=== PATIENT | male | born 1955 | race African-American/Black ===

== ENCOUNTER 2019-01-08 13:56 | Inpatient (IN) ==
--- NOTE | 2019-01-08 15:32 | EKG Report ---
Test Performed on : 01/08/2019 2:34:39 PM Test Reason : Weakness Blood Pressure : / mmHG Vent. Rate : 081 BPM Atrial Rate : 081 BPM P-R Int : 164 ms QRS Dur : 144 ms QT Int : 436 ms P-R-T Axes : 043 -32 085 degrees QTc Int : 506 ms Normal sinus rhythm. Left axis deviation Left bundle branch block Abnormal ECG When compared with ECG of 05-JUN-2018 13:33, T wave inversion no longer evident in Inferior leads T wave inversion less evident in Lateral leads Unconfirmed Result
[2019-01-08 15:44] LABS: BASO# 0.02 X1000 (0.0-0.2); BASO% 0.1 % (0.0-0.8); HEMATOCRIT 40.1 % (42.0-52.0); HEMOGLOBIN 13.3 g/dL (14.0-18.0); IMM GRAN# 0.06 X1000 (0.0-0.04); IMM GRAN% 0.3 % (0.0-0.5); LYMPH# 1.81 X1000 (1.2-3.4); LYMPH% 9.7 % (20.5-51.1); MCH 26.5 PG (27-31); MCHC 33.2 g/dL (33-37); MONO# 1.59 X1000 (0.11-0.59); MONO% 8.5 % (1.7-9.3); MPV 10.3 FL (7.4-10.4); NEUT# 15.14 X1000 (1.4-6.5); NEUT% 81.4 % (42.2-75.2); PLT 545 X1000 (130-400); RBC 5.01 XMIL (4.7-6.1); RDW 14.8 % (11.5-14.5); WBC 18.62 X1000 (4.8-10.8)
[2019-01-08 16:05] LABS: ALB/GLOB RATIO 0.9; ALBUMIN 3.8 g/dL (3.5-5.0); CALCIUM 9.9 mg/dL (8.8-10.2); CREATININE 2.2 mg/dL (0.7-1.2); POTASSIUM 5.4 mmol/L (3.5-5.1); TOTAL BILIRUBIN 0.57 mg/dL (0.20-1.00); TOTAL PROTEIN 8.1 g/dL (6.3-8.3)
[2019-01-08] MEDS ORDERED: NS 500 ML IV ONE (16:41)
--- NOTE | 2019-01-08 16:46 | PROVIDER DOCUMENTATION ---
HPI-General Adult - General Chief Complaint: Weakness Stated Complaint: lethargy Time Seen by Provider: 01/08/19 16:16 Source: patient Allergies/Adverse Reactions: Patient Allergies Allergy/AdvReac Type Severity Reaction Status Date / Time No Known Allergies Allergy Verified 01/08/19 14:16 Home Medications: Home Medication List Medication Instructions Recorded Confirmed Last Taken Type Aspirin 81 mg PO DAILY 11/30/12 09/30/18 10/05/18 09:00 History Carvedilol 25 mg PO BID 11/30/12 09/30/18 10/06/18 03:30 History Folic Acid 1 mg PO DAILY 11/30/12 09/30/18 10/05/18 09:00 History Glimepiride [Amaryl] 4 mg PO BID 11/30/12 09/30/18 10/05/18 17:00 History Irbesartan [Avapro] 0.5 tab PO DAILY 11/30/12 09/30/18 10/05/18 09:00 History Oxcarbazepine 300 mg PO BID 11/30/12 09/30/18 10/06/18 03:30 History Potassium Chloride [Klor-Con M20] 20 meq PO DAILY 11/30/12 09/30/18 10/05/18 09:00 History Furosemide 1.5 tab PO DAILY 06/05/18 09/30/18 10/05/18 09:00 History Sitagliptin Phosphate [Januvia] 100 mg PO DAILY 06/05/18 09/30/18 10/05/18 09:00 History SIMVAstatin [Zocor] 20 mg PO QHS 09/30/18 10/06/18 10/05/18 21:00 History Collagenase Clostridium Oint 1 applicatn TOP DAILY #1 oint 10/06/18 Unknown Rx [Santyl Oint] Sulfamethoxazole/Trimethoprim 1 ea PO BID #20 tab 10/06/18 Unknown Rx [Bactrim Ds Tablet] - History of Present Illness -Gen Adult Nature of Presenting Problems: Patient is a 63 yobm who complains of generalized weakness that began today. States he had an episode of diaphoresis today as well. He has a hx of a foot ulcer to right heel and right great toe amputation in August- states the site where great toe was amputated began bleeding today. 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 Denies cp, vomiting, diarrhea, fever, or any other symptoms. He is not currently on abx for his foot. Review of Systems - Adult - REVIEW OF SYSTEMS - ADULT Constitutional: reports: no symptoms reported. denies: chills, fever Eyes: reports: no symptoms reported Ears, Nose, Mouth & Throat: reports: no symptoms reported Cardiovascular: reports: no symptoms reported Respiratory: reports: no symptoms reported Gastrointestinal: reports: no symptoms reported Genitourinary: reports: no symptoms reported Musculoskeletal: reports: see HPI Integumentary: reports: see HPI Neurological: reports: no symptoms reported Psychiatric: reports: no symptoms reported Endocrine: reports: no symptoms reported Hematologic/Lymphatic: reports: no symptoms reported Allergic/Immunologic: reports: no symptoms reported All Other Systems: Reviewed and Negative Past History - Adult - PAST MEDICAL HISTORY-ADULT Review of Records: reports: Old Records Reviewed, Nursing Assessment Review, Medications Reviewed, Social history reviewed & non-contributory. Major Childhood Illnesses: reports: denies history Cardiovascular: reports: CAD, HTN, other (CHF) Respiratory: reports: denies history Gastrointestinal: reports: denies history Obstetrical/Gynecological: reports: denies history Genitourinary: reports: denies history Neurological: reports: CVA, stroke deficits Psychiatric: reports: denies history Endocrine/Immune: reports: Diabetes Diabetes Type: Type 2 Other Conditions: reports: blindness (left eye- due to cva) - PRIOR SURGERIES/PROCEDURES Surgical/Procedure History: reports: other (right foot) - FAMILY HISTORY Family History: reviewed, not pertinent - SOCIAL HISTORY Smoking: non-smoker Physical Exam-General - PHYSICAL EXAM-ADULT Initial Vital Signs Reviewed: Yes - CONSTITUTIONAL General Appearance: alert, no apparent distress. negative: lethargic, slow to respond - EYES Eyes: pink conjunctivae, other (PERRLA noted bilaterally, unable to perform EOM of left eye due to blindness and extraocular muscle weakness on left) - HEAD, EARS, NOSE, MOUTH & THROAT HENMT: normocephalic/atraumatic, moist mucous membranes - NECK Neck: full range of motion, supple, normal inspection - RESPIRATORY Respiratory: chest non-tender, lungs clear, normal breath sounds, no pleuratic chest pain, no respiratory distress, no accessory muscle use - CARDIOVASCULAR Cardiovascular: regular rate, rhythm, no gallop, no murmur - GASTROINTESTINAL (ABDOMEN) Abdominal Exam: normal bowel sounds, non tender, soft. negative: distended, guarding, rigid, rebound, tenderness - MUSCULOSKELETAL Back Exam: normal inspection Extremity: normal capillary refill, pelvis stable, other (Soft boot and bulky dressing in place to left foot- examined) - SKIN Integumentary: other (Scant amount of serosanguineous drainage noted to site of right great toe amputation) - NEUROLOGIC Neurologic: other (left -sided weakness- pt and family state this is residual from prior cva) - PSYCHIATRIC Psych/Mental Status: normal mood/affect, normal thought content, normal thought process, oriented x 3 Progress - PLAN OF CARE/RESULTS Progress/Plan/Lab Results: Vital Signs - 8 hr 01/08/19 14:13 01/08/19 14:15 01/08/19 14:28 Temperature 97.6 F Pulse Rate 84 Respiratory Rate 20 Blood Pressure 81/60 81/60 113/68 O2 Sat by Pulse Oximetry 100 98 01/08/19 14:31 01/08/19 15:01 01/08/19 15:15 Temperature Pulse Rate Respiratory Rate Blood Pressure 96/69 91/61 O2 Sat by Pulse Oximetry 98 98 98 01/08/19 15:30 01/08/19 15:31 01/08/19 15:45 Temperature Pulse Rate Respiratory Rate Blood Pressure 112/72 O2 Sat by Pulse Oximetry 99 97 98 01/08/19 16:00 01/08/19 16:01 01/08/19 16:15 Temperature Pulse Rate 81 Respiratory Rate 20 Blood Pressure 103/68 O2 Sat by Pulse Oximetry 98 98 98 Laboratory Results - last 24 hr 01/08/19 01/08/19 14:56 14:56 WBC 18.62 H RBC 5.01 Hgb 13.3 L Hct 40.1 L MCV 80.0 L MCH 26.5 L MCHC 33.2 RDW Std Deviation 14.8 H Plt Count 545 H MPV 10.3 Immature Gran % (Auto) 0.3 Neut % (Auto) 81.4 H Lymph % (Auto) 9.7 L Kay % (Auto) 8.5 Eos % (Auto) 0.0 Baso % (Auto) 0.1 Immature Gran # (Auto) 0.06 H Neut # (Auto) 15.14 H Lymph # (Auto) 1.81 Kay # (Auto) 1.59 H Eos # (Auto) 0.00 Baso # (Auto) 0.02 Sodium 135 L Potassium 5.4 H Chloride 95 L Carbon Dioxide 22 L Anion Gap 18 BUN 24 H Creatinine 2.2 H Estimated GFR/1.73 m2 37 BUN/Creatinine Ratio 11 Glucose 265 H Calculated Osmolality 283 Calcium 9.9 Total Bilirubin 0.57 AST 12 ALT 9 L Alkaline Phosphatase 140 H Total Protein 8.1 Albumin 3.8 Globulin 4.3 Albumin/Globulin Ratio 0.9 Orders Category Date Time Status Cardiac Monitoring DIRECTED Care 01/08/19 16:36 Active IV Insertion ORDERED Care 01/08/19 16:36 Active Notify MD of + Sepsis Screen NOW Care 01/08/19 16:36 Active Notify Physician As Ordered Care 01/08/19 16:36 Active CHEST-1 VIEW [RAD] Stat Exams 01/08/19 16:36 Ordered FOOT COMPLETE RIGHT [RAD] Stat Exams 01/08/19 16:37 Ordered BLOOD CULTURE [BLDCUL] Stat Lab 01/08/19 16:36 Uncollected CBC WITH ELECTRONIC DIFF [HEME] Stat Lab 01/08/19 14:56 Completed CK PROFILE [SP CHEM] Stat Lab 01/08/19 16:36 Uncollected COMPREHENSIVE METABOLIC PANEL [CHEM] Stat Lab 01/08/19 14:56 Completed LACTATE, PLASMA [CHEM] Q3H Lab 01/08/19 16:45 Uncollected LACTATE, PLASMA [CHEM] Q3H Lab 01/08/19 19:45 Uncollected LACTATE, PLASMA [CHEM] Q3H Lab 01/08/19 22:45 Uncollected MAGNESIUM [CHEM] Stat Lab 01/08/19 16:36 Uncollected PROTIME WITH INR [COAG] Stat Lab 01/08/19 16:36 Uncollected PTT [COAG] Stat Lab 01/08/19 16:36 Uncollected ROUTINE CULTURE [RM] Stat Lab 01/08/19 16:36 Uncollected TROPONIN T Stat Lab 01/08/19 16:36 Uncollected URINALYSIS W/POSS RFLX CULT [URINALYSIS] Stat Lab 01/08/19 16:36 Uncollected URINALYSIS [URINALYSIS] Stat Lab 01/08/19 15:28 Uncollected Generalized Adult Illness >60 Stat Oth 01/08/19 15:28 Ordered Oxygen Device Stat Oth 01/08/19 16:36 Active EKG [EKG] Stat Ther 01/08/19 15:28 Draft Result Diagrams: 01/08/19 14:56 01/08/19 14:56 - REASSESSMENT Reassessment #1 Time Reassessed: 17:14 Status: other (On-call md paged for admission.) Reassessment #2 Time Reassessed: 18:48 Status: other (Pt aware and is in agreement with admission plan. Dr. Llanos saw pt in the ED.) - XRAY 1 XRAY Study: Chest ([facility] - [address], [address], [place] [address] [facility] - [address] , [place] [address] Department of Imaging Patient: COOKIE SHANNON Date: 01/08/19MR#: [id number] : 1955DM Status: REG [facility]#: [id number] Age/Sex: 63/MRoom/Bed: Loc: ED Ordering Physician: Aida Teran Family Physician: Denis Llanos MD Reason for Procedure: leukocytosis, hypotension, gen weakness Signed CHEST-1 VIEW - 01/08/2019 INDICATION: leukocytosis, hypotension, gen weakness COMPARISON: 08/26/2013 FINDINGS: The lungs are normally expanded and clear. Heart size and mediastinal contours are normal. No pneumothorax or pleural effusion. IMPRESSION: Negative exam. Electronically signed by Malik Steen 01/08/2019 4:59 PM 01/08/191658 Interpreting Physician: Malik Steen MD Dictated Date/Time: 01/08/191658 cc: Aida Tearn; Denis Llanos MD) 2 XRAY: Right XRAY Study: Foot ([facility] - [address], [address], [place] [address] [facility] - [address] [place] [address] Department of Imaging Patient: COOKIE SHANNON Date: 01/08/19MR#: [id number] : 1955DM Status: REG ERAcct#: [id number] ge/Sex: 63/MRoom/Bed: Loc: ED Ordering Physician: Aida Teran Family Physician: Denis Llanos MD Reason for Procedure: diabetic foot ulcer Signed FOOT COMPLETE RIGHT - 01/08/2019 INDICATION: diabetic foot ulcer TECHNIQUE: Three views COMPARISON: None FINDINGS: There is been amputation of the great toe. There is some soft tissue swelling at the amputation bed. No soft tissue gas. There is a large penetrating ulcer with soft tissue defect at the heel. No radiodense foreign body. No bony abnormality of the calcaneus. Advanced degeneration of all the mid tarsal joints. IMPRESSION: 1. Large soft tissue ulcer at the heel. No underlying osteomyelitis visible. 2. Soft tissue swelling at the great toe excision bed. Electronically signed by Malik Steen 01/08/2019 5:01 PM 01/08/19 1701 Interpreting Physician: Malik Steen MD Dictated Date/Time: 01/08/19 8422 cc: Aida Tearn; Denis Llanos MD) - CONSULTS/PCP/HOSPITALIST Notification #1 *Consult/PCP/Hospitalist*: Dr. Llanos Time Discussed: 17:33 Reason/Comments: admission Consult Disposition: Admit, other (Md states he will see pt tonight or tomorrow. Requests that I write admit orders and give Zosyn.) #2 Consult: Dr. Gomez Time Discussed: 17:34 Reason/Comments: admission Consult Disposition: other (Answering service paged Dr. Gomez, spoke with md who is aware of admit.) Departure - Departure Date of Disposition Decision: 01/08/19 Time of Disposition Decision: 17:16 DIAGNOSIS: Weakness, Acute kidney injury Foot ulcer Qualifiers: Laterality: right Non-pressure ulcer stage: unspecified non-pressure ulcer stage Qualified Code(s): L97.519 - Non-pressure chronic ulcer of other part of right foot with unspecified severity Leukocytosis Qualifiers: Leukocytosis type: unspecified Qualified Code(s): D72.829 - Elevated white blood cell count, unspecified Hypotension Qualifiers: Hypotension type: unspecified hypotension type Qualified Code(s): I95.9 - Hypotension, unspecified Sepsis Qualifiers: Sepsis type: sepsis due to unspecified organism Sepsis acute organ dysfunction status: unspecified Qualified Code(s): A41.9 - Sepsis, unspecified organism Disposition: ADMITTED INPATIENT 09 Certified Medical Emergency: Emergent Condition: Stable Referrals and Follow-Ups: Denis Llanos MD [Primary Care Provider] - - Critical Care Note This patient required my direct & personal management of CC.: No Attestation - Physician/ LUISA Attestation Patient care was provided by Advanced Practice Provider:: Yes Advanced Practice Provider:: Aida Teran Advanced Practice Provider documentation review:: The Mid-level provider documentation, treatment plan and medical decision making was reviewed by the physician who agrees with all treatment and medical decision making by the P. The physician spent face to face time with patient:: No Advanced Practice Provider documentation review:: Supervising physician onsite and consulted in the evaluation and care of this patient. The physician did not have a face to face encounter with the patient. Sepsis: Tissue Perfusion Assmt - Physical Exam Assessment Date: 01/08/19 Time Assessment Initialized: 18:47 Vital Signs: Last Vital Signs Temp 97.6 F 01/08/19 14:15 Pulse 81 01/08/19 16:01 Resp 20 01/08/19 16:01 BP 103/68 01/08/19 16:01 Pulse Ox 98 01/08/19 16:15 Height 5 ft 9 in Weight 257 lb 01/08/19 18:48: BP 141/111 01/08/19 18:48 See EMR for other VS. Lung Sounds:: lungs clear Heart Sounds:: Regular Capillary Refill Time: Less Than 2 Seconds Peripheral Pulse Evaluation:: radial (R): 3+, radial (L): 3+ Skin Exam:: pink. negative: pallor - Impression Impression:: Tissue Perfusion Adequate - Plan Plan:: See Orders
--- NOTE | 2019-01-08 17:02 | Diag Imaging Result Doc PS360 ---
CHEST-1 VIEW - 01/08/2019 INDICATION: leukocytosis, hypotension, gen weakness COMPARISON: 08/26/2013 FINDINGS: The lungs are normally expanded and clear. Heart size and mediastinal contours are normal. No pneumothorax or pleural effusion. IMPRESSION: Negative exam. Electronically signed by Malik Steen 01/08/2019 4:59 PM
--- NOTE | 2019-01-08 17:03 | Diag Imaging Result Doc PS360 ---
FOOT COMPLETE RIGHT - 01/08/2019 INDICATION: diabetic foot ulcer TECHNIQUE: Three views COMPARISON: None FINDINGS: There is been amputation of the great toe. There is some soft tissue swelling at the amputation bed. No soft tissue gas. There is a large penetrating ulcer with soft tissue defect at the heel. No radiodense foreign body. No bony abnormality of the calcaneus. Advanced degeneration of all the mid tarsal joints. IMPRESSION: 1. Large soft tissue ulcer at the heel. No underlying osteomyelitis visible. 2. Soft tissue swelling at the great toe excision bed. Electronically signed by Malik Steen 01/08/2019 5:01 PM
[2019-01-08] MEDS ORDERED: CLINDAMYCIN 600 MG/NS 600 MG/50 ML IVPB IV ONE (17:13)
[2019-01-08] MEDS ORDERED: ZOSYN 3.375 GM in NS 50 ML IV ONE (17:29)
[2019-01-08 18:14] LABS: MAGNESIUM 2.3 mg/dL (1.5-2.7)
[2019-01-08] MEDS ORDERED: ZOFRAN IV PRN (18:35)
[2019-01-08] MEDS ORDERED: NS 1,000 ML IV ONE (18:38)
[2019-01-08] MEDS ORDERED: ZOSYN 3.375 GM in NS 50 ML IV SCH (18:45)
[2019-01-08] MEDS ORDERED: HUMALOG SUBQ ONE (18:53)
[2019-01-08] MEDS ORDERED: ZOSYN 2.25 GM in NS 50 ML IV SCH (19:00)
[2019-01-08 19:24] LABS: URINE SOURCE CATH
[2019-01-08 19:42] LABS: BILIRUBIN URINE NEGATIVE (NEGATIVE); BLOOD URINE NEGATIVE (NEGATIVE); COLOR YELLOW; GLUCOSE URINE NEGATIVE (NEGATIVE); KETONE URINE NEGATIVE (NEGATIVE); LEUKOCYTES URINE NEGATIVE (NEGATIVE); NITRITE URINE NEGATIVE (NEGATIVE); PROTEIN URINE TRACE mg/dL (NEGATIVE); TURBIDITY URINE CLEAR (CLEAR); UR EPITHELIAL CELLS <10 /HPF (<10); URINE BACTERIA NEGATIVE /HPF; URINE RBC <10 /HPF (<10); URINE WBC <10 /HPF (<10); UROBILINOGEN URINE 2 mg/dL (NORMAL)
[2019-01-08] MEDS ORDERED: HUMULIN R SUBQ SCH (21:00)
[2019-01-08 21:36] LABS: INR 1.25; PROTIME 15.9 Seconds (11.0-16.0)
[2019-01-08 21:37] LABS: PTT 38.8 Seconds (22.3-41.8)
--- NOTE | 2019-01-08 21:43 | HISTORY AND PHYSICAL ---
CHIEF COMPLAINT: Weakness. HISTORY OF PRESENT ILLNESS: This 63-year-old black male presented to the emergency room unannounced this afternoon, complaining of profound weakness. He was found to be hypotensive and with an elevated white cell count. The patient has been dealing with chronic left foot issues for years. Most recently, he had toes amputated in May per Dr. Tatum, and then in September there was a debridement performed on the patient's heel and he was given antibiotics. He apparently missed his followup appointment in October, and has been off antibiotics for months. His states that the foot has been putting out pus for a month. Today, it bled quite profusely, which has not been the usual occurrence. The patient is admitted for definitive treatment of infectious process, likely related to his foot. ALLERGIES: No known drug allergies. MEDICATIONS: 1. Januvia 100 mg p.o. daily. 2. Trileptal 300 mg p.o. b.i.d. 3. Aspirin 81 mg p.o. daily. 4. Carvedilol 25 mg p.o. b.i.d. 5. Folic acid 1 mg p.o. daily. 6. Furosemide 40 mg 1-1/2 (60 mg) p.o. daily. 7. Glimepiride 4 mg 1 p.o. b.i.d. 8. Irbesartan 300 mg 1 p.o. daily. 9. Potassium chloride ER 20 mEq p.o. daily. 10. Simvastatin 20 mg p.o. at bedtime. PAST MEDICAL HISTORY: 1. Hypertension. 2. Noninsulin dependent diabetes mellitus, with variable compliance over the years. 3. Remote history of a stroke with some left-sided deficits in the hand and the foot, as well as exotropia of the left eye. 4. Left anterior fascicular block. 5. Seizure disorder, likely secondary to CVA. 6. Diabetic arthropathy of the left foot. PAST SURGICAL HISTORY: 1. The patient had a right toe amputation in May 2018. 2. The patient had a heel debridement performed in September 2018. SOCIAL HISTORY: Patient is . He is a nonsmoker. He does not use alcohol. He formally enjoyed riding [employer] motorcycles. FAMILY HISTORY: Hypertension, hyperlipidemia, and stroke. REVIEW OF SYSTEMS: The patient denies any ongoing fever and chills. He just felt profoundly weak today before he came to the emergency room. He had been taking his medications as previously. His diabetic compliance had been marginal. He is not really able to quantify how good his sugar has been of late, which usually means he has not been checking it and has not been following a diet. The patient denies any cough, wheezing, or shortness of breath. He has had no chest pain or palpitations. He denies nausea, vomiting, constipation, or diarrhea. He has no genitourinary complaints. He has chronic left foot pain, but this is somewhat mitigated by the fact that his neuropathy in that foot has made an accurate description of the intensity of pain and type of pain very difficult. The patient denies any neurological problems ongoing other than the neuropathic and arthropathic aspects of his foot. He has chronic deficits from his previous CVA, which are unchanged. PHYSICAL EXAMINATION: VITAL SIGNS: Initial temperature is 97.6 degrees, pulse is 84, respirations 20, blood pressure was 81/60. After fluid bolus and other stimulations, his blood pressure came up to 103/68. He is 96% saturated on room air. GENERAL: He is a well developed, obese, black male in no acute distress. He immediately recognized me and began talking to me in his usual fashion. HEENT: Sclerae are anicteric. The patient has chronic left eye exotropia. I can't remember if this is chronic from his stroke, or existed prior to the stroke. Oral mucosa is adequately hydrated and of normal coloration. NECK: No carotid bruits. LUNGS: Clear. CARDIOVASCULAR: Regular. ABDOMEN: Benign and protuberant. Bowel sounds are present. EXTREMITIES: I did not unwrap the patient's left foot. He had a pad on it and he also had a bandage within the padding, which appeared to be soaked in blood. It smelled very bad, similar to rotting flesh or possibly a pseudomonal infection. NEUROLOGIC: Unchanged from previously. His left hand has sort of a chronic flexion contracture of the fingers. He was not ambulatory to test that, but he usually walks with a cane or a pronounced limp. He has used a walker at times. LABORATORY: White cell count 18.6, hemoglobin 13.3, hematocrit 40.1, platelet count 545,000. Carbon dioxide 22, BUN 24, creatinine 2.2, glucose 265, alkaline phosphatase is 140. ProBNP is 209. Plasma lactate is 2.8. ASSESSMENT AND PLAN: 1. The patient's elevated white cell count and hypotension could easily be indicative of sepsis syndrome. The most likely source, given his physical presentation and noncompliance, is a recurrence of diabetic foot infection on the left. He has been offered amputation in the past and declined. Apparently, his blood flow is now brisk in that foot, which has given the patient and his family hope, but I think in the face of diabetic noncompliance, healing of any ulceration or reinfection is going to be difficult. I plan to get a sedimentation rate and will consider a bone scan. I am going to consult Dr. Tatum who has been managing the debridement process and amputation of toes. I do not have the culture results from the [facility] available to me at the time of the dictation. Maybe Dr. Tatum has those and can help us and guide our antibiotic choices. The patient was given some clindamycin, and I have written for some Zosyn for him at a reduced dose due to his renal insufficiency. 2. Diabetes, poor compliance. Last A1c that I have on the chart is 8.2. We will start sliding scale insulin and continue his oral medications on a diabetic diet when the time is appropriate. 3. The patient usually is moderately hypertensive, but generally well controlled. It is odd for him to be hypotensive, and we will need to hold his medications. Once those are reconciled and his blood pressure seems to go back to its usual levels, then we will reinstitute those at his usual doses. For the time being, I am willing to just observe given the fact that he has relatively low blood pressure. cc: Denis Llanos MD
[2019-01-08] MEDS ORDERED: NS 500 ML ONE (22:08)
[2019-01-08] MEDS: CLINDAMYCIN 600 MG/D5W 600 MG/50 ML IVPB IV SCH (23:37)
[2019-01-09] MEDS: CLINDAMYCIN 600 MG/D5W 600 MG/50 ML IVPB IV SCH ×3 (07:09→22:34)
[2019-01-09] MEDS: HUMALOG SUBQ SCH ×4 (08:02→20:47)
--- NOTE | 2019-01-09 10:01 | PROGRESS NOTE ---
DATE: 01/09/2019 SUBJECTIVE: The patient states that his foot is hurting, but he is otherwise comfortable and slept well. His reports the blood pressure was stable overnight. OBJECTIVE: 98.0, 64, 20, 106/67, 57, and 98% saturated on room air. Lungs are clear. Cardiovascular regular. The patient's right foot is still wrapped. We are awaiting surgical consultation on that. LABORATORY: We did not get labs today since they were drawn so late last night. We will repeat a white cell count as well as a BUN and creatinine tomorrow. ASSESSMENT AND PLAN: 1. Wound cultures were obtained from the patient's foot. Surgical consultation is pending today. He is on high potency broad-spectrum antibiotics until we get further culture results. We will continue this therapy with dose adjustment due to renal insufficiency. 2. The patient is on sliding scale insulin to try and tighten up his glycemic control for better wound healing. 3. The patient's blood pressure is still moderately low. He has not taken any of his medications, and I am content to continue to watch this given the fact that he was teetering into a septic picture when he arrived. 4. The patient's chronic renal insufficiency shows he has a baseline creatinine of about 1.6. His creatinine yesterday was 2.2. We will recheck this. He got a considerable amount of fluids in the emergency room. Hopefully, this will improve his kidney function. cc: Denis Llanos MD
[2019-01-09] MEDS: JANUVIA PO SCH (14:20)
[2019-01-09] MEDS: FOLIC ACID PO SCH (14:21)
[2019-01-09] MEDS: AVAPRO PO SCH (14:22)
[2019-01-09] MEDS: AMARYL PO SCH (17:27)
--- NOTE | 2019-01-09 18:18 | GENERAL SURGERY CONSULTATION ---
DATE: 01/09/2019 HISTORY OF PRESENT ILLNESS: Mr. Licea is a 63-year-old, male known to me from previous attention to his right foot. He has diabetic foot infections that have required amputation of his great toe and debridement of his heel. Despite outpatient therapy, he has not healed. He has very poor blood flow in his foot, which I think bodes poorly for his healing. He had no flow in his foot based on her arterial waveforms back in April and we did what intervention we could back early in year, in May, that is we did an atherectomy. MEDICATIONS: His medications include Januvia, Trileptal, aspirin, carvedilol, folic acid, Lasix, glimepiride, Irbesartan, potassium and simvastatin. ALLERGIES: He has no known drug allergies. PAST MEDICAL HISTORY: Pertinent for hypertension, cerebrovascular disease. Left anterior fascicular block. Seizure disorder, and diabetic arthropathy of the foot level. PAST SURGICAL HISTORY: Previous surgery includes a toe amputation and heel debridement. SOCIAL HISTORY: He is . Does not smoke. Denies alcohol use. Denies illicit drug use. FAMILY HISTORY: Pertinent for hypertension, hyperlipidemia, stroke. REVIEW OF SYSTEMS: Pertinent for weakness. He denies any fever. Denies chest pain shortness of breath. He denies any GI side effects or complaints. All of the subsystems of a 10 subsystem review are negative. PHYSICAL EXAMINATION: Vital Signs: He is afebrile. Heart rate 74, blood pressure is 130/68, respiratory rate 20. HEENT: Normocephalic. His neck is supple. No adenopathy is noted. Lungs: Clear. Heart: Regular rate and rhythm. Abdomen: Soft, nontender. He does not have any pedal pulses. Integumentary: Reveals poorly healing amputation site of the right great toe and an ulcer of the right heel. Neurologic: He is awake alert and oriented. ASSESSMENT: Diabetic foot infection. He has very poor arterial flow. PLAN: The plan is repeat his lower extremity arterial study. I do not think that the prognosis is good and I think it will ultimately come to a BK amputation of his arterial waveforms for supportive BK amputation. cc: MD Denis Almendarez MD
[2019-01-09] MEDS: TYLENOL PO PRN (20:47)
[2019-01-10] MEDS: HUMALOG SUBQ SCH ×4 (06:11→20:12)
[2019-01-10 08:08] LABS: CALCIUM 8.8 mg/dL (8.8-10.2); CREATININE 1.6 mg/dL (0.7-1.2)
[2019-01-10 08:11] LABS: BASO# 0.02 X1000 (0.0-0.2); BASO% 0.3 % (0.0-0.8); EOS# 0.01 X1000 (0.0-0.7); EOS% 0.1 % (0.0-10.0); HEMATOCRIT 35.5 % (42.0-52.0); HEMOGLOBIN 11.5 g/dL (14.0-18.0); LYMPH# 1.84 X1000 (1.2-3.4); LYMPH% 24.5 % (20.5-51.1); MCH 26.7 PG (27-31); MCHC 32.4 g/dL (33-37); MCV 82.4 FL (81-99); MONO# 0.86 X1000 (0.11-0.59); MONO% 11.5 % (1.7-9.3); MPV 10.1 FL (7.4-10.4); NEUT# 4.78 X1000 (1.4-6.5); NEUT% 63.6 % (42.2-75.2); PLT 399 X1000 (130-400); RBC 4.31 XMIL (4.7-6.1); RDW 14.9 % (11.5-14.5); WBC 7.51 X1000 (4.8-10.8)
--- NOTE | 2019-01-10 09:47 | VASCULAR LAB ---
PROCEDURE NAME: Arterial Bilateral Legs - 01/09/2019 PROCEDURE: Lower extremities arterial study at rest. REFERRING PHYSICIAN: Del Tatum MD. INTERPRETING PHYSICIAN: Del Tatum MD. TECH: Juan. The patient has a nonhealing amputation site of the right great toe and a right heel ulcer. FINDINGS: Brachial pressure 124 on the right, 135 on the left. The PVRs down to the calf appear normal. The right ankle PVRs are diminished. The PPGs on the left are pulsatile. The high thigh pressure on the right is greater than 185, right calf pressure is 126, right dorsalis pedis pressure 100, right posterior tibial 66, right AB index 0.74. On the left, the low thigh pressure 170, left calf pressure 157, left dorsalis pedis greater than 200, left posterior tibial greater than 200. Left toe pressure is 81, left nmq-yc-kdtqnlrr index 0.60. INTERPRETATION: This study does not measure PPGs at the toe level on the right. The ankle pressure and AB index on the right is improved compared to the study of 05/06/2018. The left toe- to-brachial index is also improved compared to the study of 05/06/2018. I believe this patient would heal a BK amputation satisfactorily. cc: Del Tatum MD
[2019-01-10] MEDS: AMARYL PO SCH ×2 (10:12→16:02)
[2019-01-10] MEDS: TYLENOL PO PRN ×2 (10:12→20:13)
[2019-01-10] MEDS: AVAPRO PO SCH (10:12)
[2019-01-10] MEDS: FOLIC ACID PO SCH (10:12)
[2019-01-10] MEDS: JANUVIA PO SCH (10:12)
[2019-01-10] MEDS: ZYVOX PO SCH ×2 (11:19→20:13)
--- NOTE | 2019-01-10 12:18 | PROGRESS NOTE ---
DATE: 01/10/2019 SUBJECTIVE: The patient is awake and in bed. He answers questions appropriately. He has no complaints, other than a little bit of foot pain, but he denied the need for any pain medication. OBJECTIVE: Vital Signs: 98.1, 72, 124/68, 98% saturated on room air. General: On physical exam, the patient is alert, oriented, conversive and appropriate. He stutters when he talks and has some asymmetry of the left side of the face which is old. The patient's left hand does not work well secondary to stroke, as does the left leg. Lungs: Clear. Cardiovascular: Regular. Extremities: They have rewrapped his right foot. I did not view that. LABORATORY: White cell count 7.5, hematocrit 35.5. BUN 18, creatinine 1.6. Serum blood sugars have all been less than 200. ASSESSMENT AND PLAN: 1. Wound cultures grew Staphylococcus aureus. I have changed the patient over to Zyvox. I spoke with Dr. Tatum today and reviewed the arterial studies. The best recommendation is for below- knee amputation. The patient and his were made aware of that. He is going to contemplate it. She is in favor of proceeding with below-knee amputation since the patient has basically been bed-confined because of his foot for a month. 2. Sliding scale insulin is adequate in controlling his glycemic studies. We will continue present diet and medication treatment. 3. The patient's blood pressure remains within a good realm off of his carvedilol. We will continue the irbesartan and monitor his progress. 4. Exacerbation of the patient's chronic renal insufficiency at admission has resolved. He is back to his baseline creatinine of 1.6. We have held his diuretics and the carvedilol. cc: Denis Llanos MD
--- NOTE | 2019-01-10 15:17 | GENERAL SURGERY PROGRESS NOTE ---
DATE: 01/10/2019 He is afebrile with stable hemodynamics. His white count is down to 7000. His lower extremity arterial study shows adequate flow to heal a BK amputation. Discussed frankly with him today that I think this is his best option. I do not think his foot is going to heal based on the paucity of flow in his foot. I have asked him to reflect about that. I think we should proceed with this beginning of the week if he agrees. cc: MD Denis Almendarez MD
[2019-01-11] MEDS: TYLENOL PO PRN ×2 (02:06→20:48)
[2019-01-11] MEDS: HUMALOG SUBQ SCH ×4 (06:22→21:02)
[2019-01-11] MEDS: FOLIC ACID PO SCH (08:31)
[2019-01-11] MEDS: ZYVOX PO SCH ×2 (08:32→20:48)
[2019-01-11] MEDS: AMARYL PO SCH ×2 (08:32→17:47)
[2019-01-11] MEDS: JANUVIA PO SCH (08:32)
[2019-01-11] MEDS: AVAPRO PO SCH (08:32)
--- NOTE | 2019-01-11 09:38 | PROGRESS NOTE ---
DATE: 01/11/2019 SUBJECTIVE: The patient has no real complaints. He states that in the night, his foot will hurt sometimes, but they will usually come give him some Tylenol, and it feels better. He is able to sleep. We discussed his blood sugar to be under good control. We also discussed his blood pressure, which was up a little bit today. The patient's daughters in the room and was participating in the conversation. OBJECTIVE: Vital Signs: Temperature 98.0, pulse 66, respirations 18, blood pressure 160/76, saturating 100% on room air. General: The patient is alert, oriented, conversive, and appropriate. Lungs: Clear. Cardiovascular: Regular. Neurological: The patient is operating at baseline with his deficits in speech and left-sided motor function. LABORATORY DATA: There was no laboratory ordered today. Blood sugars have been all below 200 with sliding scale insulin. He is eating well. ASSESSMENT AND PLAN: 1. Wound cultures grew Staphylococcus aureus. He is on Zyvox at present. Dr. Tatum has discussed below-knee amputation with the patient and his family. 2. Sliding scale insulin is adequate, along with his diet in controlling his diabetes. We will continue that plan. 3. The patient's blood pressure has been ideal for the last 2 days of his admission. He is off carvedilol. Today, his blood pressure went up a bit. We are going to continue to monitor this, and we will restart that as necessary. It is noted that his pulse rate is still in the 60s. 4. The patient's chronic renal insufficiency is operating at baseline. Creatinine of 1.6. We will recheck this tomorrow. cc: Denis Llanos MD
--- NOTE | 2019-01-11 10:17 | GENERAL SURGERY PROGRESS NOTE ---
DATE: 01/11/2019 Mr. Licea continues the same. He is afebrile. He continues on clindamycin. I once again discussed the need for a below-knee amputation. I am uncertain as to how well he understands it. His is not present today for the discussion. He will continue to reflect and give us a decision hopefully within the next day or two. cc: MD Denis Almendarez MD
[2019-01-12] MEDS: HUMALOG SUBQ SCH ×4 (06:07→21:31)
[2019-01-12 08:00] LABS: BASO# 0.02 X1000 (0.0-0.2); BASO% 0.3 % (0.0-0.8); HEMOGLOBIN 11.6 g/dL (14.0-18.0); LYMPH# 1.86 X1000 (1.2-3.4); LYMPH% 25.1 % (20.5-51.1); MCH 26.7 PG (27-31); MCHC 33.1 g/dL (33-37); MCV 80.5 FL (81-99); MONO# 0.67 X1000 (0.11-0.59); MONO% 9.1 % (1.7-9.3); MPV 9.6 FL (7.4-10.4); NEUT# 4.85 X1000 (1.4-6.5); NEUT% 65.5 % (42.2-75.2); PLT 421 X1000 (130-400); RBC 4.35 XMIL (4.7-6.1); RDW 14.7 % (11.5-14.5)
[2019-01-12 08:31] LABS: AGAP 10; BUN 14 mg/dL (8-22); CALCIUM 8.5 mg/dL (8.8-10.2); CHLORIDE 104 mmol/L (98-107); COSMO 279; CREATININE 1.4 mg/dL (0.7-1.2); ESTIMATED GFR > 60; GLUCOSE 78 mg/dL (70-104); POTASSIUM 4.2 mmol/L (3.5-5.1); SODIUM 140 mmol/L (136-145); TCO2 26 mmol/L (25-35)
[2019-01-12] MEDS: JANUVIA PO SCH (09:46)
[2019-01-12] MEDS: FOLIC ACID PO SCH (09:46)
[2019-01-12] MEDS: AVAPRO PO SCH (09:46)
[2019-01-12] MEDS: ZYVOX PO SCH ×2 (09:46→21:31)
--- NOTE | 2019-01-12 10:32 | PROGRESS NOTE ---
DATE: 01/12/2019 SUBJECTIVE: The patient states that his foot hurts some at night but is generally handled by Tylenol. He declined use of any other harder pain medications. We discussed the patient's blood sugar dropping somewhat in the wee hours in the morning today. He states that he did not eat dinner. OBJECTIVE: Vital Signs: 97.8, 60, 18, 135/72, 100% saturated on room air. Physical Examination: General: He is a well-developed, well-nourished black male in no acute distress. Lungs: Clear. Cardiovascular: Regular. Neuropsychiatric: The patient is generally conversive and engaging in a normal fashion. We were discussing possible surgical intervention on his right leg and he seemed to have no recollection of the conversations that we have had every day since he came in the hospital. ASSESSMENT AND PLAN: 1. Staphylococcus aureus grew from the patient's wound culture. He is on Zyvox. I am sure that Dr. Tatum will approach the subject of below the knee amputation again with him, as I did today. 2. Sliding scale insulin is doing a good job. I think I am going to lower his glimepiride dose to once daily in order to avoid nocturnal hypoglycemia. Hopefully, he will continue eating in a normal fashion. 3. Blood pressure control is adequate. 4. Chronic renal insufficiency is at baseline or better at the present time with a creatinine of 1.4 today. cc: Denis Llanos MD
[2019-01-12] MEDS: TYLENOL PO PRN (15:42)
[2019-01-13] MEDS: HUMALOG SUBQ SCH ×4 (06:07→21:47)
[2019-01-13] MEDS: TYLENOL PO PRN ×2 (06:44→18:33)
--- NOTE | 2019-01-13 07:28 | GENERAL SURGERY PROGRESS NOTE ---
DATE: 01/12/2019 Mr. Licea has now agreed to amputation. Will look at scheduling. I cannot do it on Saturday, but possibly on Saturday, but will plan to proceed when we can schedule it. cc: MD Denis Almendarez MD
[2019-01-13] MEDS: AVAPRO PO SCH (08:58)
[2019-01-13] MEDS: JANUVIA PO SCH (08:58)
[2019-01-13] MEDS: ZYVOX PO SCH ×2 (08:58→21:47)
[2019-01-13] MEDS: FOLIC ACID PO SCH (08:58)
[2019-01-13] MEDS: AMARYL PO SCH (08:58)
[2019-01-13] MEDS: LOVENOX SUBQ SCH (09:01)
[2019-01-13] MEDS: TRILEPTAL PO SCH ×2 (09:02→21:47)
--- NOTE | 2019-01-13 13:12 | PROGRESS NOTE ---
DATE: 01/13/2019 SUBJECTIVE: The patient states that his leg hurts at night sometimes, and generally releved by Tylenol. He has no other complaints. We discussed blood sugar, and we also discussed upcoming operative procedures. OBJECTIVE: Vital Signs: Temperature 97.9, pulse 75, blood pressure 120/68, 100% saturated on room air. General: The patient is alert, oriented, conversive, and appropriate. Lungs: Clear. Cardiovascular: Regular. LABORATORY DATA: None. ASSESSMENT AND PLAN: 1. I spoke with Dr. Tatum this morning, and the patient has agreed to fmlid-frj-nlaw amputation on the right side. That would afford him the best opportunity for healing and to get back on his feet at some point. Dr. Tatum indicated that he could not schedule the case until morning. 2. The patient's blood sugar is reasonably controlled. 3. Blood pressure is fine without his carvedilol. We will leave that off. 4. Deep venous thrombosis prophylaxis is in place. 5. The patient will continue on Zyvox, and I have started some clindamycin as adjunctive therapy for Staphylococcus aureus wound cultures. It is noted that his blood cultures were negative. cc: Denis Llanos MD MTDD
[2019-01-13] MEDS: CLINDAMYCIN 600 MG/D5W 600 MG/50 ML IVPB IV SCH ×2 (13:55→21:46)
--- NOTE | 2019-01-13 21:28 | GENERAL SURGERY PROGRESS NOTE ---
DATE: 01/13/2019 Mr. Licea is doing fine. We once again discussed our plan for amputation. We can do this on , 01/15/2019. I discussed that with him. He understands and agrees to proceed. cc: MD Denis Almendarez MD
[2019-01-14] MEDS: TYLENOL PO PRN ×2 (04:22→11:08)
[2019-01-14] MEDS: CLINDAMYCIN 600 MG/D5W 600 MG/50 ML IVPB IV SCH ×3 (04:24→20:14)
[2019-01-14] MEDS: HUMALOG SUBQ SCH ×3 (06:37→17:30)
[2019-01-14 07:43] LABS: BASO# 0.01 X1000 (0.0-0.2); BASO% 0.1 % (0.0-0.8); EOS# 0.01 X1000 (0.0-0.7); EOS% 0.1 % (0.0-10.0); HEMATOCRIT 36.9 % (42.0-52.0); HEMOGLOBIN 12.1 g/dL (14.0-18.0); IMM GRAN# 0.02 X1000 (0.0-0.04); IMM GRAN% 0.2 % (0.0-0.5); LYMPH% 29.4 % (20.5-51.1); MCH 26.5 PG (27-31); MCHC 32.8 g/dL (33-37); MCV 80.9 FL (81-99); MONO# 0.81 X1000 (0.11-0.59); MONO% 9.9 % (1.7-9.3); MPV 9.7 FL (7.4-10.4); NEUT# 4.91 X1000 (1.4-6.5); NEUT% 60.3 % (42.2-75.2); PLT 461 X1000 (130-400); RBC 4.56 XMIL (4.7-6.1); WBC 8.16 X1000 (4.8-10.8)
[2019-01-14 08:04] LABS: AGAP 10; ALB/GLOB RATIO 1.1; ALBUMIN 3.7 g/dL (3.5-5.0); ALKALINE PHOSPHATASE 95 U/L (32-122); BUN 13 mg/dL (8-22); CALCIUM 9.1 mg/dL (8.8-10.2); CHLORIDE 102 mmol/L (98-107); COSMO 279; CREATININE 1.2 mg/dL (0.7-1.2); ESTIMATED GFR > 60; GLUCOSE 120 mg/dL (70-104); GOT 10 U/L (10-34); GPT 10 U/L (10-44); POTASSIUM 4.5 mmol/L (3.5-5.1); SODIUM 139 mmol/L (136-145); TCO2 27 mmol/L (25-35); TOTAL BILIRUBIN 0.16 mg/dL (0.20-1.00); TOTAL PROTEIN 7.2 g/dL (6.3-8.3)
[2019-01-14] MEDS: AMARYL PO SCH (08:36)
[2019-01-14] MEDS: ZYVOX PO SCH ×2 (08:36→20:14)
[2019-01-14] MEDS: AVAPRO PO SCH (08:36)
[2019-01-14] MEDS: TRILEPTAL PO SCH ×2 (08:36→20:14)
[2019-01-14] MEDS: FOLIC ACID PO SCH (08:36)
[2019-01-14] MEDS: JANUVIA PO SCH (08:36)
[2019-01-14] MEDS: LOVENOX SUBQ SCH (08:37)
--- NOTE | 2019-01-14 09:14 | PROGRESS NOTE ---
DATE: 01/14/2019 SUBJECTIVE: The patient has no complaints. His appetite is good. He is scheduled for surgery tomorrow for a below-knee amputation on the right side. OBJECTIVE: VITAL SIGNS: 98.5, 80, 18, 128/67, 98% saturated on room air. PHYSICAL EXAMINATION: Lungs: Clear. Cardiovascular: Regular. Neurologic: Neurological deficits as described previously. LABORATORY DATA: White cell count is 8.16, hemoglobin 12.1, BUN 13, creatinine 1.2, blood glucose 126. ASSESSMENT AND PLAN: 1. The patient is scheduled for a right kyoiz-pul-mkbo amputation tomorrow with Dr. Tatum. 2. Diabetes is well controlled. 3. Blood pressure is excellent. 4. Deep venous thrombosis prophylaxis is in place, which we will discontinue prior to surgery. 5. The patient will continue on Zyvox and clindamycin for Staphylococcus aureus from his wound cultures. cc: Denis Llanos MD
--- NOTE | 2019-01-15 00:41 | GENERAL SURGERY PROGRESS NOTE ---
DATE: 01/14/2019 I discussed Mr. Licea's surgery for tomorrow, that is the below-knee amputation. I answered his questions. The crown pouncer has already come to see him. We will plan to proceed tomorrow. cc: MD Denis Almendarez MD
[2019-01-15] MEDS: CLINDAMYCIN 600 MG/D5W 600 MG/50 ML IVPB IV SCH ×3 (04:33→22:30)
[2019-01-15] MEDS: HUMALOG SUBQ SCH ×5 (06:34→22:47)
[2019-01-15] MEDS: AMARYL PO SCH (08:16)
[2019-01-15] MEDS: FOLIC ACID PO SCH (08:16)
[2019-01-15] MEDS: JANUVIA PO SCH (08:16)
[2019-01-15] MEDS: LOVENOX SUBQ SCH (08:16)
[2019-01-15] MEDS: AVAPRO PO SCH (08:16)
[2019-01-15] MEDS: TRILEPTAL PO SCH ×2 (08:17→22:53)
[2019-01-15] MEDS: ZYVOX PO SCH ×2 (08:17→22:52)
--- NOTE | 2019-01-15 09:57 | PROGRESS NOTE ---
DATE: 01/15/2019 SUBJECTIVE: The patient has no complaints. He is going for surgery today. OBJECTIVE: Vital Signs: 98.3, 75, 18, 135/70, 99% saturated on room air. General: On physical exam, the patient is alert, oriented, conversive and appropriate. Lungs: Clear. Cardiovascular: Regular. LABORATORIES: None were drawn today. ASSESSMENT AND PLAN: 1. The patient is going for right below-knee amputation today per Dr. Tatum. 2. Blood pressure is reasonably controlled. 3. Diabetes is much better controlled than usual. 4. His chronic renal insufficiency has improved with the withholding of Lasix and appropriate blood pressure control. cc: Denis Llanos MD
[2019-01-15] MEDS ORDERED: DIPRIVAN 1% ONE (10:46)
[2019-01-15] MEDS ORDERED: XYLOCAINE-MPF 2% ONE (10:47)
[2019-01-15] MEDS ORDERED: EPHEDRINE ONE (10:50)
[2019-01-15] MEDS ORDERED: CLINDAMYCIN 600 MG/D5W 600 MG/50 ML IVPB ONE (11:43)
[2019-01-15] MEDS ORDERED: FENTANYL ONE (12:19)
[2019-01-15] MEDS: DILAUDID ONE ×3 (13:34→13:48)
[2019-01-15] MEDS ORDERED: ZOFRAN ONE (13:54)
[2019-01-15] MEDS ORDERED: NORCO-10 ONE (14:03)
[2019-01-15] MEDS: DILAUDID IV PRN ×2 (17:35→22:55)
--- NOTE | 2019-01-15 20:15 | OPERATIVE NOTE ---
PROCEDURE DATE: 01/15/2019 PROCEDURE PERFORMED: Right below-knee amputation. SURGEON: Del Tatum MD. EXTERIOR INTERIOR SPECIALIST: JERSON Hutchins. PREOPERATIVE DIAGNOSIS: Ischemic gangrene of the right foot. POSTOPERATIVE DIAGNOSIS: Ischemic gangrene of the right foot. DESCRIPTION OF PROCEDURE: Satisfactory general anesthesia was achieved. The foot was left bandaged. The right leg was then prepped and draped in a sterile fashion with the foot excluded. We made a curvilinear ming anteriorly 4 fingerbreadths below the tibial tubercle. We then made a long posterior ming and went 15 cm below the proximal one. We then incised the skin at the area that was marked. We carried our incision into the subcutaneous tissue. We achieved satisfactory hemostasis with electrocautery. The greater saphenous vein was ligated and divided with 3-0 Polysorb. We then carried our incision down to the tibia anteriorly and laterally through the anterior compartment. We then dissected also down to the fibula. The anterior tibial artery was suture ligated with 2-0 silk suture ligature and divided. We then dissected laterally down to the fibula and then medially along the course of the medial border of the tibia. Passed a hemostat behind the tibia and transected with a Gigli saw, tapering again anteriorly. We then transected the fibula with a bone biter just proximal to the end of the tibia. We raised with a bone hook in the mid marrow of the tibia and then used a guillotine knife to incise behind both bones all the way to the distal ming and transected the muscle there. We handed off the lower leg. The vessels that were bleeding were clamped with hemostats. We then suture ligated the major vessels with 2-0 silk suture ligatures. Small vessels were suture ligated with 3-0 Polysorb suture ligatures. We ligated the tibial nerve proximally with a 3-0 Polysorb and transected it. We then used a file to file off the end of the tibia. We then copiously irrigated the flap. After satisfactory hemostasis was achieved, we then folded the posterior flap anteriorly, and we cut off some of the muscle distally. We used 0 Polysorb in the first layer of muscle to muscle, and then used 3-0 Polysorb in the subcutaneous tissue. The skin was closed with katy. Xeroform was applied, sterile 4x4s and a sterile Kerlix. Then a 6-inch OCL splint was placed, followed by a 6-inch David. He tolerated the procedure satisfactorily. Estimated blood loss was 200 mL. He was sent to the recovery room in satisfactory condition. cc: MD Denis Almendarez MD
[2019-01-15] MEDS: PERIDEX MT SCH (22:47)
[2019-01-16] MEDS: DILAUDID IV PRN ×4 (02:55→16:36)
[2019-01-16 06:58] LABS: BASO# 0.02 X1000 (0.0-0.2); BASO% 0.2 % (0.0-0.8); EOS# 0.02 X1000 (0.0-0.7); EOS% 0.2 % (0.0-10.0); HEMATOCRIT 33.4 % (42.0-52.0); HEMOGLOBIN 10.9 g/dL (14.0-18.0); LYMPH# 2.21 X1000 (1.2-3.4); LYMPH% 17.5 % (20.5-51.1); MCH 26.9 PG (27-31); MCHC 32.6 g/dL (33-37); MCV 82.5 FL (81-99); MONO# 1.52 X1000 (0.11-0.59); NEUT# 8.86 X1000 (1.4-6.5); NEUT% 70.1 % (42.2-75.2); PLT 422 X1000 (130-400); RBC 4.05 XMIL (4.7-6.1); RDW 15.1 % (11.5-14.5); WBC 12.63 X1000 (4.8-10.8)
[2019-01-16] MEDS: CLINDAMYCIN 600 MG/D5W 600 MG/50 ML IVPB IV SCH (07:09)
[2019-01-16 07:15] LABS: AGAP 12; BUN 14 mg/dL (8-22); CALCIUM 8.8 mg/dL (8.8-10.2); CHLORIDE 99 mmol/L (98-107); COSMO 274; CREATININE 0.9 mg/dL (0.7-1.2); ESTIMATED GFR > 60; GLUCOSE 185 mg/dL (70-104); POTASSIUM 4.4 mmol/L (3.5-5.1); SODIUM 134 mmol/L (136-145); TCO2 23 mmol/L (25-35)
[2019-01-16] MEDS: HUMALOG SUBQ SCH ×4 (08:04→21:34)
--- NOTE | 2019-01-16 09:42 | PROGRESS NOTE ---
DATE: 01/16/2019 SUBJECTIVE: The patient is status post BKA yesterday. He has not complained of any pain. He expresses no needs when asked. His appetite is good. OBJECTIVE: 98.6, 92, 16, 135/75, and 99% saturated on a nasal cannula. Lungs: Clear. Cardiovascular: Regular. Neuropsych: Patient is alert, oriented, conversive and appropriate. LABORATORY: Hematocrit 33.4, BUN 14, creatinine 0.9, and blood sugar 185. ASSESSMENT AND PLAN: 1. The patient is status post BKA on the right side. The family has requested [facility] in [place]. Due to the patient's previous left-sided stroke deficits and now with the added burden of a right BKA, I think he needs some training and rehab in regard to operation of crutches until he can get a prosthesis and then he can go home with further outpatient therapy once that occurs at some point down the line. 2. The patient's blood pressure is up compared to previous days. We will continue to monitor this. We still have one blood pressure medicine that he was previously taking that we have been holding. 3. Diabetes is reasonably controlled. We will continue sliding scale insulin. 4. Chronic renal insufficiency is basically resolved off of diuretics. We will continue to monitor this. cc: Denis Llanos MD
[2019-01-16] MEDS: PERIDEX MT SCH ×2 (09:43→21:34)
[2019-01-16] MEDS: AMARYL PO SCH (09:43)
[2019-01-16] MEDS: JANUVIA PO SCH (09:44)
[2019-01-16] MEDS: FOLIC ACID PO SCH (09:44)
[2019-01-16] MEDS: ZYVOX PO SCH ×2 (09:44→21:34)
[2019-01-16] MEDS: AVAPRO PO SCH (09:44)
[2019-01-16] MEDS: TRILEPTAL PO SCH ×2 (09:44→21:34)
--- NOTE | 2019-01-16 16:14 | GENERAL SURGERY PROGRESS NOTE ---
DATE: 01/16/2019 Mr. Licea is doing generally well. His pain relief is adequate. White count 12,000, hemoglobin 10.9. Chemistry is okay. PLAN: The plan will be to arrange for him to go to rehab. His wants to go to what used to be call [facility] in [place]. He has a limb protector in place. Dr. Romo will cover the weekend. cc: MD Denis Almendarez MD
[2019-01-17] MEDS: NORCO-10 PO PRN ×2 (01:57→18:38)
[2019-01-17] MEDS: HUMALOG SUBQ SCH ×4 (07:59→21:41)
[2019-01-17] MEDS: PERIDEX MT SCH ×2 (09:03→21:41)
[2019-01-17] MEDS: ZYVOX PO SCH ×2 (09:03→21:41)
[2019-01-17] MEDS: TRILEPTAL PO SCH ×2 (09:03→21:41)
[2019-01-17] MEDS: FOLIC ACID PO SCH (09:04)
[2019-01-17] MEDS: AVAPRO PO SCH (09:04)
[2019-01-17] MEDS: AMARYL PO SCH (09:04)
[2019-01-17] MEDS: JANUVIA PO SCH (09:04)
--- NOTE | 2019-01-17 12:47 | GENERAL SURGERY PROGRESS NOTE ---
DATE: 01/17/2019 SUBJECTIVE: The patient is doing okay. He denies pain, nausea, vomiting, shortness of breath. OBJECTIVE: Vital Signs: He is afebrile. Vital signs are stable. General: He is awake, alert and oriented x4. No acute distress. CV: Mildly tachycardic at 100. Respirations: Clear breath sounds bilaterally. Extremities: The right BKA stump is in a brace. LABORATORY: None today. ASSESSMENT AND PLAN: A 63-year-old male postoperative day 2 right below-knee amputation. We will continue pain control, physical therapy, and eventual transfer or discharge to rehab. cc: MD Denis Dempsey MD
[2019-01-18] MEDS: HUMALOG SUBQ SCH ×3 (06:53→17:22)
[2019-01-18 07:35] LABS: BASO# 0.02 X1000 (0.0-0.2); BASO% 0.2 % (0.0-0.8); EOS# 0.04 X1000 (0.0-0.7); EOS% 0.4 % (0.0-10.0); HEMATOCRIT 28.3 % (42.0-52.0); HEMOGLOBIN 9.3 g/dL (14.0-18.0); LYMPH# 2.43 X1000 (1.2-3.4); MCH 27.1 PG (27-31); MCHC 32.9 g/dL (33-37); MCV 82.5 FL (81-99); MONO# 1.36 X1000 (0.11-0.59); MONO% 12.3 % (1.7-9.3); NEUT# 7.19 X1000 (1.4-6.5); NEUT% 65.1 % (42.2-75.2); PLT 351 X1000 (130-400); RBC 3.43 XMIL (4.7-6.1); RDW 15.3 % (11.5-14.5); WBC 11.04 X1000 (4.8-10.8)
[2019-01-18] MEDS: ZYVOX PO SCH (08:39)
[2019-01-18] MEDS: PERIDEX MT SCH (08:39)
[2019-01-18] MEDS: TRILEPTAL PO SCH (08:40)
[2019-01-18] MEDS: AMARYL PO SCH (08:40)
[2019-01-18] MEDS: AVAPRO PO SCH (08:40)
[2019-01-18] MEDS: JANUVIA PO SCH (08:40)
[2019-01-18] MEDS: FOLIC ACID PO SCH (08:40)
--- NOTE | 2019-01-18 13:42 | GENERAL SURGERY PROGRESS NOTE ---
DATE: 01/18/2019 SUBJECTIVE: The patient has no complaints. No events overnight. OBJECTIVE: Vital signs: He is afebrile. Vital signs are stable. General: He is awake, alert, oriented x3. No acute distress. Extremities: The right stump remains in the protective splint. The dressing underneath appears clean and dry. ASSESSMENT AND PLAN: A 63-year-old male status post right below-knee amputation. He is doing pretty well. His heart rate remains somewhat elevated but not as much this morning. Dr. Tatum will take a look at the wound tomorrow, and we are anticipating discharge to rehab soon. cc: MD Denis Dempsey MD
[2019-01-18] MEDS: NORCO-10 PO PRN (18:52)
[2019-01-19] MEDS: PERIDEX MT SCH ×3 (00:23→21:55)
[2019-01-19] MEDS: ZYVOX PO SCH ×3 (00:23→21:55)
[2019-01-19] MEDS: TRILEPTAL PO SCH ×3 (00:23→21:56)
[2019-01-19] MEDS: HUMALOG SUBQ SCH ×5 (04:29→21:10)
[2019-01-19] MEDS: NORCO-10 PO PRN (04:31)
--- NOTE | 2019-01-19 08:34 | GENERAL SURGERY PROGRESS NOTE ---
DATE: 01/19/2019 Mr. Licea is now 4 days postop from a below the knee amputation. His stump is unwrapped and inspected. It looks good. We left the splint off. We will keep the protector on after re- wrapping it. We will seek rehabilitation transfer. cc: MD Denis Almendarez MD
[2019-01-19] MEDS: JANUVIA PO SCH (09:25)
[2019-01-19] MEDS: AVAPRO PO SCH (09:25)
[2019-01-19] MEDS: FOLIC ACID PO SCH (09:25)
[2019-01-19] MEDS: AMARYL PO SCH (09:25)
--- NOTE | 2019-01-19 17:31 | PROGRESS NOTE ---
DATE: 01/19/2019 SUBJECTIVE: The patient has no complaints. He has made very slow progress with physical therapy and is only sitting on the edge of the bed. He is undecided whether he would do better with crutches or a walker. He has no complaint of pain. OBJECTIVE: Vital Signs: 98.8, 80, 16, 152/89, 97% saturated on room air. General: The patient is alert, oriented, conversive, and appropriate. He seems to be in a good mood. HEENT: Exam unremarkable. Lungs: Clear. Cardiovascular: Regular. LABORATORY: No labs drawn today. Blood sugars are adequately controlled. ASSESSMENT AND PLAN: 1. The patient is status post [id number] amputation on the right side. We are waiting for insurance approval for transfer to [facility]. They stated that they do have a bed for him. We are waiting on [employer] to make a decision. 2. Blood pressure is stable. 3. Diabetes is stable. 4. Chronic renal insufficiency has resolved since discontinuing diuretics. 5. As soon as insurance approval comes through, we will be able to transfer him to appropriate rehab facility. cc: Denis Llanos MD
[2019-01-20] MEDS: NORCO-10 PO PRN ×2 (01:38→09:27)
[2019-01-20] MEDS: HUMALOG SUBQ SCH ×5 (06:50→21:49)
--- NOTE | 2019-01-20 08:24 | GENERAL SURGERY PROGRESS NOTE ---
DATE: 01/20/2019 SUBJECTIVE: Mr. Licea remains afebrile with stable hemodynamics. OBJECTIVE: We wrapped his stump yesterday. It is healing satisfactorily. He only has the limb protector on now. PLAN: We are awaiting transferred to rehab. Physical Therapy is involved. cc: MD Denis Almendarez MD
[2019-01-20] MEDS: FOLIC ACID PO SCH (09:00)
[2019-01-20] MEDS: TRILEPTAL PO SCH ×2 (09:01→21:47)
[2019-01-20] MEDS: AVAPRO PO SCH (09:01)
[2019-01-20] MEDS: PERIDEX MT SCH ×2 (09:01→21:47)
[2019-01-20] MEDS: ZYVOX PO SCH ×2 (09:01→21:47)
[2019-01-20] MEDS: AMARYL PO SCH (09:02)
[2019-01-20] MEDS: JANUVIA PO SCH (09:03)
--- NOTE | 2019-01-20 18:13 | PROGRESS NOTE ---
DATE: 01/20/2019 SUBJECTIVE: The patient has no complaints. He states that his right BKA stump is not hurting. OBJECTIVE: Vital Signs: 97.7, 89, 14, 136/75, 100% saturated on room air. Lungs: Clear. Cardiovascular: Regular. The patient is alert, oriented, conversive and appropriate. LABORATORY: The patient's blood sugar was 70 at about 6 and then checked later in the morning at 273 after they probably invoked some protocol to get his sugar up. ASSESSMENT AND PLAN: 1. The patient is status post below-knee amputation on the right side. As of this dictation, we still have not received insurance approval for transfer to [facility] rehab. 2. Blood pressure stable. 3. Diabetes has been stable. He had a little low sugar this morning and a subsequent rise after invoking protocol measures. 4. Chronic renal insufficiency has essentially resolved off of diuretics and with blood pressure control. cc: Denis Llanos MD
[2019-01-21] MEDS: NORCO-10 PO PRN ×2 (01:29→10:20)
[2019-01-21] MEDS: HUMALOG SUBQ SCH ×3 (06:43→21:55)
[2019-01-21] MEDS: JANUVIA PO SCH (09:08)
[2019-01-21] MEDS: GLUCOPHAGE PO SCH (09:08)
[2019-01-21] MEDS: TRILEPTAL PO SCH ×2 (09:08→21:49)
[2019-01-21] MEDS: AMARYL PO SCH (09:08)
[2019-01-21] MEDS: PERIDEX MT SCH ×2 (09:08→21:49)
[2019-01-21] MEDS: AVAPRO PO SCH (09:09)
[2019-01-21] MEDS: FOLIC ACID PO SCH (09:09)
[2019-01-21] MEDS: DOXYCYCLINE PO SCH ×2 (09:09→21:49)
--- NOTE | 2019-01-21 10:22 | GENERAL SURGERY PROGRESS NOTE ---
DATE: 01/21/2019 SUBJECTIVE: Mr. Licea's stump looks excellent. We wrapped it with Kerlix only, has the limb protector. We were awaiting rehab referral. I think he is progressing well. cc: MD Denis Almendarez MD
--- NOTE | 2019-01-21 10:42 | DISCHARGE SUMMARY ---
ADMISSION DATE: 01/08/2019 DISCHARGE DATE: DISCHARGE DIAGNOSES: 1. Gangrene of the right foot. 2. Diabetic foot ulcer. 3. Diabetes mellitus poorly controlled. 4. Hypertension. 5. Status post CVA with left-sided deficit. HOSPITAL COURSE: This 63-year-old black male had been seeing Dr. Tatum for wound care. He had his right foot debrided some time in June, and then had his heel debrided in September of 2018. The patient was given a months worth of antibiotics. He finished those but never followed up as scheduled without any additional antibiotic. He presented to the emergency room, he was weak, hypotensive, and had an elevated white cell count with obvious infection in the right foot. The patient was admitted to the hospital, started on antibiotics, and given some fluid resuscitation. We held the patient's carvedilol and Lasix due to worsening of his chronic mild renal insufficiency and his hypotension. With fluid resuscitation and antibiotics, the patient improved, but studies confirmed poor blood flow to the foot. It was determined that his best option for ever regaining his feet in any sense of a normal capacity would involve below the knee amputation on that side. We continued the patient on antibiotics. We did not have to restart his carvedilol as his blood pressure was well controlled. His diabetes was controlled on sliding scale insulin. We also discontinued his Lasix and his kidney function improved to normal values. The patient underwent BKA for Dr. Tatum. He tolerated the procedure quite well. He had postop pain. He was difficult in getting the patient's rehabilitation started. Because of the previous cerebrovascular accident which left him with some left-sided deficits in his hand and his foot, and now saddled with a right below knee amputation. His ability in gaining speed was somewhat tenuous and the learning curve would be somewhat slow. We pursued multiple avenues of rehabilitation, and at the time of this dictation, the patient had been approved for a bed at [facility] in [place]. We are waiting for approval from his insurance company in order to get him transferred over there. In the postoperative period, his blood sugar is well controlled. Hypertension is well controlled. Renal insufficiency was better than his previous baseline. There were no other signs and symptoms of infection. During his hospitalization, he was on clindamycin and Zyvox. The wound cultures from the original wound grew back Staph aureus. There was no significant resistance in that wound culture except for penicillin G. He can likely be discharged with some tetracycline having received clindamycin and Zyvox during his hospitalization. After discharge from rehabilitation, the patient will likely go home with further outpatient physical therapy until he can be fitted with a prosthesis. cc: Denis Llanos MD MTDD
--- NOTE | 2019-01-21 17:49 | PROGRESS NOTE ---
DATE: 01/21/2019 SUBJECTIVE: The patient's chart was reviewed. In summary, patient was admitted on 01/08/2019, with profound weakness. The patient was found to have a diabetic foot ulcer. Broad-spectrum antibiotics were initiated. Dr. Tatum with General Surgery was consulted for possible surgical management. Unfortunately, despite aggressive intervention, patient experienced progressive ischemic/gangrenous symptoms. 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 Patient tolerated this well. Postoperative course has been complicated only by pain. This morning, upon my arrival, patient was sitting upright in bed eating breakfast. Overall, he states he feels reasonably well. He continues to work with Physical Therapy. He is prepared for discharge to rehabilitation once available. He denies fevers, chills, nausea, vomiting, shortness of breath, or chest discomfort. OBJECTIVE: Temperature max 98.4, heart rate 89 to 97, respirations 14 to 20, blood pressure 128 to 145 over 70 to 79.General: No acute distress. Cardiovascular: Regular rate and rhythm. No significant murmurs, rubs, or gallops. Pulmonary: Clear to auscultation bilaterally. Abdomen: Soft, nontender, nondistended. Positive bowel sounds. Extremities: Patient is status post right [id number]-miw-[id number] amputation. No significant clubbing, cyanosis, or edema on the left. Dermatologic: Dressed right lower extremity surgical wound. LABORATORY DATA: None. ASSESSMENT AND PLAN: 1. Gangrenous/ischemic right foot. The patient is postoperative day #6. Per surgical notes, the wound appears intact without evidence of infection. We will defer further postoperative management to Dr. Tatum. 2. Hypertension. Blood pressure is reasonably stable on his current regimen. 3. Diabetes. Patient's blood sugar is reasonably stable on his current regimen. 4. Chronic renal insufficiency. As of last evaluation, creatinine was stable. 5. Weakness/unsteady gait. At this point, patient will need to relearn transfer. We will defer whether a prosthesis is appropriate for the future. The patient would benefit from further physical therapy and rehabilitation as he does have a history of a left-sided stroke. 6. Prophylaxis. We will discuss subcutaneous Lovenox with Dr. Tatum. 7. Disposition. At this point, patient continues to require longterm care in a hospital setting. We will plan transfer to rehabilitation once able. cc: MD Denis Sommer MD
[2019-01-22] MEDS: HUMALOG SUBQ SCH (06:59)
--- NOTE | 2019-01-22 08:25 | PROGRESS NOTE ---
DATE: 01/22/2019 SUBJECTIVE: Over the course of the last 24 hours, the patient states he has done quite well. This morning, upon my arrival, the patient is sitting upright in bed. His only complaints are weakness associated with his acute illness and surgery and pelvic pressure. He denies fevers, chills, nausea, vomiting, shortness of breath, or chest discomfort. Appetite has been adequate. OBJECTIVE: Vital Signs: T-max 100 degrees, heart rate 91 to 110, respirations 14 to 20, blood pressure 128 to 144/69 to 89. General: Well nourished, well developed, no acute distress. Cardiovascular: Slightly tachycardic. Regular rhythm. No significant murmurs, rubs, or gallops. Pulmonary: Clear to auscultation bilaterally. Abdomen: Soft, nontender, nondistended. Positive bowel sounds. Extremities: Moves left lower extremity well. No significant clubbing, cyanosis, or edema. Dermatologic: A dressed right pwoug-fzk-[id number] amputation. LABORATORY DATA: Pending at the time of dictation. ASSESSMENT AND PLAN: 1. Gangrenous/ischemic right foot. The patient is postoperative day #7, right [id number]-[id number]-[id number] amputation. Per surgical notes, the incision appears intact without evidence of infection. We will defer further postoperative management to Dr. Tatum while hospitalized. Because of his previous left-sided stroke and his right jlxbb-[id number]-gsri amputation, the patient is a prime candidate for further rehabilitation. We await insurance clearance for transfer. Will continue doxycycline therapy. 2. Hypertension. The patient's blood pressure is borderline controlled on his current regimen. Will resume coreg, but at a decreased dose of 3.125mg BID. 3. Diabetes. Blood sugars are also reasonably controlled on his current regimen. We will continue this. 4. Chronic renal insufficiency. As of last evaluation, creatinine was stable. We will recheck kidney function today. 5. Weakness/unsteady gait. This is likely a consequence of his acute illness and recent surgery. This is compounded with the fact that he does have left-sided weakness associated with a previous stroke. We will continue physical therapy for now. As described above, he does appear to be a prime candidate for rehabilitation. 6. Pelvic pressure. We will check a bladder scan as well as a urinalysis. We will follow this. 7. Prophylaxis. We will discuss starting Lovenox with Dr. Tatum. At this point, he is at risk for deep venous thrombosis. Thus, we will likely initiate therapy. 8. Disposition. At this point, the patient continues to require residential care in a hospital setting. We will plan discharge to rehabilitation once able. Addendum: Labs were reviewed. Renal function acceptable. H/H moderately low. Will need follow-up at rehab. Insurance has recommended transfer to rehabilitation. cc: MD Denis Sommer MD MTDD
[2019-01-22 08:56] LABS: BASO# 0.01 X1000 (0.0-0.2); BASO% 0.1 % (0.0-0.8); EOS# 0.01 X1000 (0.0-0.7); EOS% 0.1 % (0.0-10.0); HEMATOCRIT 26.1 % (42.0-52.0); HEMOGLOBIN 8.6 g/dL (14.0-18.0); LYMPH# 1.65 X1000 (1.2-3.4); LYMPH% 22.5 % (20.5-51.1); MCH 26.4 PG (27-31); MCV 80.1 FL (81-99); MONO# 0.75 X1000 (0.11-0.59); MONO% 10.2 % (1.7-9.3); MPV 8.4 FL (7.4-10.4); NEUT# 4.92 X1000 (1.4-6.5); NEUT% 67.1 % (42.2-75.2); PLT 369 X1000 (130-400); RBC 3.26 XMIL (4.7-6.1); RDW 14.9 % (11.5-14.5); WBC 7.34 X1000 (4.8-10.8)
[2019-01-22 09:09] LABS: AGAP 10; ALBUMIN 3.2 g/dL (3.5-5.0); ALKALINE PHOSPHATASE 70 U/L (32-122); BUN 13 mg/dL (8-22); CALCIUM 8.8 mg/dL (8.8-10.2); CHLORIDE 100 mmol/L (98-107); COSMO 269; CREATININE 1.1 mg/dL (0.7-1.2); ESTIMATED GFR > 60; GLUCOSE 104 mg/dL (70-104); GOT 17 U/L (10-34); GPT 18 U/L (10-44); POTASSIUM 4.4 mmol/L (3.5-5.1); SODIUM 134 mmol/L (136-145); TCO2 24 mmol/L (25-35); TOTAL BILIRUBIN 0.18 mg/dL (0.20-1.00); TOTAL PROTEIN 6.5 g/dL (6.3-8.3)
[2019-01-22] MEDS ORDERED: LOVENOX SUBQ SCH (10:15)
[2019-01-22] MEDS ORDERED: COREG PO SCH (10:15)
[2019-01-22] MEDS: TRILEPTAL PO SCH (10:32)
[2019-01-22] MEDS: AMARYL PO SCH (10:32)
[2019-01-22] MEDS: GLUCOPHAGE PO SCH (10:32)
[2019-01-22] MEDS: AVAPRO PO SCH (10:33)
[2019-01-22] MEDS: DOXYCYCLINE PO SCH (10:33)
[2019-01-22] MEDS: JANUVIA PO SCH (10:33)
[2019-01-22] MEDS: PERIDEX MT SCH (10:33)
[2019-01-22] MEDS: FOLIC ACID PO SCH (10:33)
[2019-01-22 10:37] LABS: URINE SOURCE CLEAN CATCH
[2019-01-22 10:43] LABS: BILIRUBIN URINE NEGATIVE (NEGATIVE); BLOOD URINE NEGATIVE (NEGATIVE); COLOR YELLOW; GLUCOSE URINE NEGATIVE (NEGATIVE); KETONE URINE NEGATIVE (NEGATIVE); LEUKOCYTES URINE NEGATIVE (NEGATIVE); NITRITE URINE NEGATIVE (NEGATIVE); PROTEIN URINE NEGATIVE (NEGATIVE); TURBIDITY URINE CLEAR (CLEAR); UROBILINOGEN URINE NORMAL (NORMAL)
[2019-01-22 10:44] LABS: UR EPITHELIAL CELLS <10 /HPF (<10); URINE BACTERIA NEGATIVE /HPF; URINE RBC <10 /HPF (<10); URINE WBC <10 /HPF (<10)
[2019-01-22 10:59] VITALS: BP 125/67
[2019-01-22] MEDS: NORCO-10 PO PRN (11:09)
== END 2019-01-22 11:49 | DRG 240 ==
LOC: SUPCPDRO → ED 13:56 → EDIPHOLD 20:21 → 3N 21:54 → 4N 01-15 14:58
PROVIDERS: ADMIT Internal Medicine; ATTEND Internal Medicine